=== PATIENT | male | born 1990 | race Caucasian/White ===

== ENCOUNTER 2017-01-04 13:32 | Emergency (ER) | payer OTHER ==
[~2017-01-04] VITALS: Ht 180.3 cm; Wt 72.6 kg
[~2017-01-04 13:32] MED LIST: MOTRIN800 MG PO; PERCOCET 325 MG1 TA2 PO
[2017-01-04 13:38] VITALS: BP 152/79
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
== END 2017-01-04 14:40 ==
LOC: ERH 13:32
DX: S06.0X0A Concussion without loss of consciousness, initial encounter (principal); S09.92XA Unspecified injury of nose, initial encounter; V83.5XXA Driver of special industrial vehicle injured in nontraffic accident, initial encounter; Y93.89 Activity, other specified; Y92.9 Unspecified place or not applicable

== ENCOUNTER 2017-11-16 11:44 | Emergency (ER) | payer OTHER ==
[~2017-11-16] VITALS: Ht 180.3 cm; Wt 72.6 kg
--- NOTE | 2017-11-16 12:34 | ED HAND/WRIST INJURY COMPLAINT ---
History of Present Illness General Chief Complaint: Hand or Wrist Injury Stated Complaint: RIGHT 1ST DIGIT PAIN, S/P BASKETBALL INJURY Source: patient Exam Limitations: no limitations Allergies Coded Allergies: NO KNOWN ALLERGIES (01/04/17) Reconcile Medications No Known Home Medications Triage Note: 27 YO MALE TO TRIAGE C/O R THUMB PAIN S/P JAMMING IT LAST PM WHILE PLAYING BASKETBALL. DECLINS PAIN MEDICATION IN TRIAGE, NO SWELLING/BRUISING NOTED. Triage Nurses Notes Reviewed? yes HPI: Patient is 27-year-old male with no significant past medical history, not on any medication who presents after jamming his right thumb during a basketball game. Since injury reports swelling, pain and decreased range of motion of the right thumb. Patient did not fall or injure any other part of his body. Review of systems negative. (Valente Donahue MD) Vital Signs & Intake/Output Vital Signs & Intake/Output Vital Signs Date Time Temp Pulse Resp B/P B/P Pulse O2 O2 Flow FiO2 Mean Ox Delivery Rate 11/16 1308 99 Room Air 11/16 1148 98.2 61 18 133/73 98 Room Air (Sissy HUBER,Tom Meier) Past History Travel History Traveled to [place] past 21 day No Medical History Any Pertinent Medical History? 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 No (Valente Donahue MD) Review of Systems Review of Systems Constitutional: Denies: chills, diaphoresis, fever. EENTM: Reports: no symptoms. Respiratory: Reports: no symptoms. Cardiovascular: Reports: no symptoms. GI: Reports: no symptoms. Genitourinary: Reports: no symptoms. Musculoskeletal: Reports: joint pain (R thumb), joint swelling (R thumb). Skin: Reports: no symptoms. Neurological/Psychological: Denies: numbness, tingling. (Valente Donahue MD) Physical Exam Physical Exam General Appearance: well developed/nourished, no apparent distress, alert, awake , comfortable Head: atraumatic Eyes: Bilateral: normal appearance, EOMI, pale conjunctivae. Ears, Nose, Throat: normal pharynx, hearing grossly normal Neck: normal inspection, supple, full range of motion Cardiovascular/Respiratory: normal breath sounds, normal peripheral pulses, regular rate/rhythm, no respiratory distress Back: normal inspection, normal range of motion Hand Left: normal inspection, normal range of motion Hand Right: limited range of motion (secondary to pain), swelling, tender, 1st finger (Valente Donahue MD) Progress Differential Diagnosis: sprain Plan of Care: Orders Procedure Date/time Status XRY-FINGERS, RIGHT 11/16 1149 Active X-ray of right thumb shows soft tissue swelling with no fracture or dislocation. Blood placed on the right thumb shunt was given instructions on how to reapply as necessary. Patient given a note for work and recommended to avoid strenuous activity involving the right hand. Patient instructed to control pain with [id number] ibuprofen medication, ice, and elevation. Diagnostic Imaging: Viewed by Me: Radiology Read. Radiology Impression: no fracture, no dislocation (Valente Donahue MD) Departure Departure Disposition: HOME OR SELF CARE Condition: Stable Clinical Impression Primary Impression: Sprain of right thumb Qualifiers: Encounter type: initial encounter Sprain of finger site: metacarpophalangeal joint Qualified Code: S63.641A - Sprain of metacarpophalangeal joint of right thumb, initial encounter Referrals: Patient Has No Primary Care Dr (PCP/Family) Additional Instructions: Avoid any strenuous physical activity involving the right hand for 7-10 days or until swelling and pain subsides. Continue to elevate the right arm to level above the heart as much as possible. She right thumb base or ice pack for 15 minutes at a time as tolerated. Take ibuprofen-containing medication such as Motrin or Aleve for pain control. If he should experience any tingling or numbness of the right thumb or severe worsening of the pain call a primary care physician to establish care or return to the ER. Departure Forms: Customer Survey General Discharge Information RELEASE- WORK Prescriptions: Current Visit Scripts No Known Home Medications (Valente Donahue MD) Resident Co-Sign Statement Statement: ED Attending supervision documentation- [X] I saw and evaluated the patient. I have also reviewed all the pertinent lab results and diagnostic results. I agree with the findings and the plan of care as documented in the Resident's documentation. [] I have reviewed the ED Record and agree with the Resident's documentation. [] Additions or exceptions (if any) to the Resident's note and plan are summarized below: [] (Sissy HUBER,Tom Meier)
--- NOTE | 2017-11-16 12:52 | RADIOLOGY REPORT ---
EXAMINATION: XR FINGER, RIGHT CLINICAL INFORMATION: Pain status post jamming of the finger. Rule out thumb fracture. COMPARISON: None TECHNIQUE: PA, lateral, and oblique views of the right thumb. FINDINGS: The soft tissues are swollen around the thumb. The bones are normal. No fracture. Alignment is anatomic. Joint spaces are maintained. IMPRESSION: Soft tissue swelling around the thumb. No fracture or malalignment.
[2017-11-16 13:36] VITALS: BP 126/79
== END 2017-11-16 13:39 ==
LOC: ERH 11:44
DX: S63.601A Unspecified sprain of right thumb, initial encounter (principal); W23.0XXA Caught, crushed, jammed, or pinched between moving objects, initial encounter; Y93.67 Activity, basketball; Y92.9 Unspecified place or not applicable
CPT/HCPCS: 73140-RT

== ENCOUNTER 2018-05-01 11:26 | Emergency (ER) | payer OTHER ==
[~2018-05-01] VITALS: Ht 180.3 cm; Wt 72.6 kg
[2018-05-01 11:40] VITALS: BP 128/78
--- NOTE | 2018-05-01 13:56 | RADIOLOGY REPORT ---
EXAMINATION: XR WRIST, LEFT XR HAND, LEFT CLINICAL INFORMATION: Fall. Fracture evaluation. COMPARISON: None TECHNIQUE: Left wrist, 4 views Left hand, 3 views FINDINGS: Left wrist: Nondisplaced, transversely oriented fracture extends through the base of the radial styloid process. The small, 0.2 cm calcification at the tip of the ulnar styloid could represent recent avulsion fracture. The radiocarpal, midcarpal and carpometacarpal joint spaces are maintained. No evidence of carpal bone fracture or carpal subluxation. Left hand: The metacarpals and phalanges are intact. The metacarpophalangeal and interphalangeal joint spaces are maintained. Bones have normal alignment in the hand. IMPRESSION: 1. Nondisplaced, transverse fracture through the base of the radial styloid. 2. Small, 0.2 cm calcification at the tip of the ulnar styloid process could represent a recent avulsion fracture. 3. No acute osseous injury in the hand.
[2018-05-01] MEDS ORDERED: CYCLOBENZAPRINE10 M1 PO (15:06)
[2018-05-01] MEDS ORDERED: NAPROXEN250 M1 PO (15:06)
--- NOTE | 2018-05-01 15:48 | ED GENERAL ADULT ---
History of Present Illness General Chief Complaint: Hand or Wrist Injury Stated Complaint: LEFT WRIST INJURY S/P FALL Source: patient Exam Limitations: no limitations Vital Signs & Intake/Output Vital Signs & Intake/Output Vital Signs Date Time Temp Pulse Resp B/P B/P Pulse O2 O2 Flow FiO2 Mean Ox Delivery Rate 05/01 1140 96.3 77 20 128/78 98 Room Air Allergies Coded Allergies: NO KNOWN ALLERGIES (01/04/17) Reconcile Medications Cyclobenzaprine HCl 10 MG TABLET 1 TAB PO QPM PAIN (Reported) Ibuprofen 800 MG TABLET 1 TAB PO TID PRN pain Naproxen 250 MG TABLET 1 TAB PO DAILY PAIN (Reported) Oxycodone HCl/Acetaminophen (Percocet 5-325 MG Tablet) 5 MG-325 MG TABLET 1 TAB PO Q4-6 PRN PRN pain Triage Note: PT TO ED C/O LEFT WRIST/HAND PAIN C/P TRIP AND FALL 20 MINS PT WORK. DENIES HEAD STRIKE. STATES HE BROKE HIS FALL WITH HIS LEFT HAND/WRIST. DECLINING MEDS IN TRIAGE. WORKERS COMP FORM FILED. Triage Nurses Notes Reviewed? yes Onset: Abrupt Duration: minute(s): Timing: single episode today HPI: 28-year-old otherwise healthy right hand dominant male presenting with left arm pain status post mechanical trip and fall just prior to arrival. Patient states he was walking and tripped over a rock, caught himself with his left hand outstretched. Denies numbness or paresthesias. Denies head strike or LOC. (Nunu Arroyo) Past History Travel History Traveled to [place] past 21 day No Medical History Any Pertinent Medical History? 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 No (Nunu Arroyo) Review of Systems Review of Systems Constitutional: Reports: no symptoms. EENTM: Reports: no symptoms. Respiratory: Reports: no symptoms. Cardiovascular: Reports: no symptoms. GI: Reports: no symptoms. Genitourinary: Reports: no symptoms. Musculoskeletal: Reports: see HPI. Skin: Reports: no symptoms. Neurological/Psychological: Reports: no symptoms. Hematologic/Endocrine: Reports: no symptoms. Immunologic/Allergic: Reports: no symptoms. (Nunu Arroyo) Physical Exam Physical Exam General Appearance: well developed/nourished, no apparent distress, alert, awake , comfortable Head: atraumatic, normal appearance Eyes: Bilateral: normal appearance. Neck: normal inspection, full range of motion, no midline tenderness Respiratory: normal breath sounds, chest non-tender, lungs clear Cardiovascular: regular rate/rhythm Gastrointestinal: soft, non-tender Back: normal inspection, normal range of motion, no vertebral tenderness Extremities: on exam of the left upper extremity there are no abrasions, edema, or deformities. Positive tenderness to palpation at both the radial and ulnar styloids. Sensation intact. Decreased range of motion at the wrist, with decreased motor strength as well. Radial pulses 2+. Neurologic/Psych: awake, alert, oriented x 3, normal gait, normal mood/affect Skin: intact, normal color, warm/dry Core Measures ACS in differential dx? No CVA/TIA Diagnosis: No Sepsis Present: No Sepsis Focused Exam Completed? No (Nunu Arroyo) Progress Differential Diagnoses I considered the following diagnoses in my evaluation of the patient: [Contusion versus fracture versus sprain versus dislocation] Plan of Care: X-ray 1. Nondisplaced, transverse fracture through the base of the radial styloid. 2. Small, 0.2 cm calcification at the tip of the ulnar styloid process could represent a recent avulsion fracture. 3. No acute osseous injury in the hand. Patient placed in sugar tong splint. Given orthopedic follow-up Ibuprofen and Rx Percocet for pain Counseled on supportive care and strict return precautions Initial ED EKG: none (Nunu Arroyo) Departure Departure Disposition: HOME OR SELF CARE Condition: Stable Clinical Impression Primary Impression: Left forearm fracture Referrals: Jocelin HUBER,Oliver Chin Patient Has No Primary Care Dr (PCP/Family) Additional Instructions: Keep the splint dry. Follow up with orthopedics for re-evaluation. Return to the emergency department for any new or worsening symptoms. Departure Forms: Customer Survey General Discharge Information Industrial Accident Report Prescriptions: Current Visit Scripts Oxycodone HCl/Acetaminophen (Percocet 5-325 MG Tablet) 1 TAB PO Q4-6 PRN PRN pain #15 TAB Ibuprofen 1 TAB PO TID PRN pain #60 TAB (Nunu Arroyo) PA/BIOLOGY INTERN Co-Sign Statement Statement: ED Attending supervision documentation- I saw and evaluated the patient. I have also reviewed all the pertinent lab results and diagnostic results. I agree with the findings and the plan of care as documented in the PA's/BIOLOGY INTERN's documentation. x I have reviewed the ED Record and agree with the PA's/BIOLOGY INTERN's documentation. [] Additions or exceptions (if any) to the PAs/BIOLOGY INTERN's note and plan are summarized below: [] (Keaton HUBER,Shon) Procedures Splinting Location: left forearm Manual Alignment Performed: No Hand-Made Type: orthoglass Splint: sugar-tong Splint Applied By: splint applied by other (PA-S under my supervision) Pre-Proc Neuro Vasc Exam: normal Post-Proc Neuro Vasc Exam: normal (Nunu Arroyo) Critical Care Note Critical Care Note Critical Care Time: non-applicable (Nunu Arroyo)
[2018-05-01] MEDS ORDERED: IBUPROFEN800 M1 PO (15:55)
[2018-05-01] MEDS ORDERED: PERCOCET 5-3251 EACH PO (15:55)
== END 2018-05-01 15:56 ==
LOC: ERH 11:26
DX: S52.515A Nondisplaced fracture of left radial styloid process, initial encounter for closed fracture (principal); W18.09XA Striking against other object with subsequent fall, initial encounter; Y93.01 Activity, walking, marching and hiking
CPT/HCPCS: 73110-LT; 73130-LT